=== PATIENT | female | born 1950 | race Caucasian/White ===

== ENCOUNTER 2017-10-10 11:58 | Emergency (ER) | payer OTHER ==
[~2017-10-10] VITALS: Ht 157.5 cm; Wt 66.4 kg
[~2017-10-10 11:58] MED LIST: CIPRO 250MG TA250 MG PO; FLAGYL500 MG PO; NAPROSYN500 MG PO; NORCO 325 MG-51 TAB PO; PROAIR HFA0.09 MG/AC IH; TYLENOL 325MG325 MG PO; ZESTRIL 10MG10 MG PO
[2017-10-10 12:03] VITALS: BP 140/73; PULSE 98; TEMP 98.8
[2017-10-10] MEDS ORDERED: JANUMET 1000 MG1 TA1 PO (12:17)
[2017-10-10] MEDS ORDERED: LISINOPRIL-HCTZ 20-1 (12:18)
[2017-10-10 12:35] LABS: COLLECTION METHOD CLEAN CATCH
[2017-10-10 12:38] LABS: BASO # 0.1 (0.0-0.2); BASO % 0.7 % (0.0-2.0); EOS # 0.2 (0.0-0.7); EOS % 2.1 % (0-4.0); GRAN # 4.3 (1.4-6.5); GRAN % 59.8 % (42.2-75.2); HEMATOCRIT 40.3 % (37.0-47.0); HEMOGLOBIN 14.8 g/dl (12.5-16.0); LYMPH # 2.1 (1.2-3.4); LYMPH % 29.5 % (20.0-51.0); MEAN CELL VOLUME 82 fl (80.0-100.0); MEAN CORPUSCULAR HEMOGLOBIN 30 pg (27.0-31.0); MEAN CORPUSCULAR HGB CONC 37 g/dl (33.0-37.0); MEAN PLATELET VOLUME 10.8 fl (7.4-10.4); MONO # 0.6 (0.1-0.6); MONO % 7.6 % (1.7-9.3); PLATELET COUNT 207 K/mm3 (130-400); RED BLOOD COUNT 4.89 M/mm3 (4.10-5.30); REDCELL DISTRIBUTION WIDTH-CV 12.1 % (11.5-14.5)
[2017-10-10 12:42] LABS: PH 5 (5-8); SQUAMOUS EPITHELIAL 0-2 /hpf; URINE APPEARANCE Clear; URINE BACTERIA None Seen /hpf; URINE BILIRUBIN Negative (NEGATIVE); URINE BLOOD Negative (NEGATIVE); URINE COLOR Yellow; URINE GLUCOSE 3+ (NEGATIVE); URINE KETONE Negative (NEGATIVE); URINE LEUKOCYTE ESTERASE Negative (NEGATIVE); URINE NITRATE Negative (NEGATIVE); URINE PROTEIN(semi-quant) 1+ (NEGATIVE); URINE RBC 0-2 /hpf; URINE UROBILINOGEN Negative (NEGATIVE)
[2017-10-10 12:58] LABS: ALBUMIN 4.4 gm/dL (3.5-5.0); BILIRUBIN,TOTAL 0.7 mg/dL (0.0-1.0); CALCIUM 10.1 mg/dL (8.4-10.2); CREATININE, serum 0.77 mg/dL (0.52-1.25); POTASSIUM 4.2 mmol/L (3.4-5.0); TOTAL PROTEIN 8.6 gm/dL (6.4-8.2)
== END 2017-10-10 13:49 | disposition home or self-care (01) ==
LOC: COL.ER 11:58
PROVIDERS: Family Medicine
DX: E11.65 Type 2 diabetes mellitus with hyperglycemia (principal); Z79.84 Long term (current) use of oral hypoglycemic drugs
CPT/HCPCS: J1815; J7030

== ENCOUNTER 2021-07-30 23:28 | Emergency (ER) | payer MEDICARE, OTHER ==
[~2021-07-30] VITALS: Ht 157.5 cm; Wt 60.9 kg
[~2021-07-30 23:28] MED LIST changes: +GLUCOPHAGE1000 MG PO; +JANUMET 1000 MG1 TA1 PO; +LANTUS SOLOS100 U/ML SQ; +LISINOPRIL-HCTZ 20-1; +NOVOLOG FLEX100 U/ML SQ; +PRINIVIL20 MG PO
[2021-07-30 23:39] VITALS: TEMP 97.7
[2021-07-30 23:50] LABS: BASO % 0.3 % (0.0-2.0); EOS # 0.1 K/mm3 (0.0-0.7); EOS % 1.4 % (0.0-4.0); GRAN % 58.4 % (42.2-75.2); HEMATOCRIT 39.4 % (37.0-47.0); HEMOGLOBIN 13.6 g/dl (12.5-16.0); LYMPH # 2.9 K/mm3 (1.2-3.4); LYMPH % 33.9 % (20.0-51.0); MEAN CELL VOLUME 86 fl (80.0-100.0); MEAN CORPUSCULAR HEMOGLOBIN 30 pg (27-31); MEAN CORPUSCULAR HGB CONC 35 g/dl (33.0-37.0); MONO # 0.5 K/mm3 (0.1-0.6); MONO % 5.8 % (1.7-9.3); PLATELET COUNT 252 K/mm3 (130-400); RED BLOOD COUNT 4.59 M/mm3 (4.10-5.30); REDCELL DISTRIBUTION WIDTH-CV 12.3 % (11.5-14.5)
[2021-07-31 00:05] LABS: ALANINE AMINOTRANSFERASE 16 U/L (0-55); ALBUMIN 4.2 gm/dL (3.4-4.8); ALKALINE PHOSPHATASE 51 U/L (40-150); ANION GAP 13 mmol/L (7-16); AST,SGOT 19 U/L (5-34); BILIRUBIN,TOTAL 0.3 mg/dL (0.2-1.2); BLOOD UREA NITROGEN 14 mg/dL (10-20); CALCIUM 9.6 mg/dL (8.4-10.2); CARBON DIOXIDE 21 mmol/L (23-31); CHLORIDE 103 mmol/L (98-107); CREATININE, serum 0.84 mg/dL (0.57-1.11); GLUCOSE 114 mg/dL (70-99); SODIUM 137 mmol/L (136-145); TOTAL PROTEIN 7.5 gm/dL (6.2-8.1)
[2021-07-31 00:35] LABS: TROPONIN-I < 0.010 ng/mL (0.00-0.033)
[2021-07-31 01:28] LABS: COLLECTION METHOD CLEAN CATCH
[2021-07-31 01:34] LABS: PH 6 (5-8); SQUAMOUS EPITHELIAL None Seen /hpf (0-10); URINE APPEARANCE Clear (CLEAR/HAZY); URINE BACTERIA None Seen /hpf (NONE SEEN); URINE BILIRUBIN Negative (NEGATIVE); URINE BLOOD Negative (NEGATIVE); URINE COLOR Straw (YELLOW); URINE GLUCOSE Negative (NEGATIVE); URINE KETONE Negative (NEGATIVE); URINE LEUKOCYTE ESTERASE Negative (NEGATIVE); URINE NITRATE Negative (NEGATIVE); URINE PROTEIN(semi-quant) Negative (NEGATIVE); URINE RBC 0-2 /hpf (0-2); URINE UROBILINOGEN Negative (NEGATIVE)
[2021-07-31 09:48] VITALS: BP 154/73; PULSE 81
== END 2021-07-31 09:48 | disposition home or self-care (01) ==
LOC: COL.ER 23:28
PROVIDERS: Nurse Practitioner
DX: S09.90XA Unspecified injury of head, initial encounter (principal); S00.81XA Abrasion of other part of head, initial encounter; E11.9 Type 2 diabetes mellitus without complications; Z79.4 Long term (current) use of insulin; Z79.84 Long term (current) use of oral hypoglycemic drugs; W19.XXXA Unspecified fall, initial encounter
CPT/HCPCS: J7030

== ENCOUNTER 2021-08-20 09:10 | Day surgery (SDC) | payer MEDICARE, OTHER ==
[~2021-08-20] VITALS: Ht 160 cm; Wt 59.8 kg
[2021-08-20] MEDS ORDERED: TRULICITY0.75 MG/0. SQ (10:17)
[2021-08-20] MEDS ORDERED: GLUCOPHAGE1000 MG PO (10:17)
[2021-08-20] MEDS ORDERED: INDERAL60 MG PO (10:18)
[2021-08-20] MEDS ORDERED: PRILOSEC 20MG20 MG PO (10:18)
[2021-08-20] MEDS ORDERED: SYNTHROID 0.0.025 MG PO (10:18)
[2021-08-20 10:23] VITALS: BP 144/78; PULSE 68; TEMP 97.3
[2021-08-20 11:55] VITALS: BP 134/70; PULSE 80; TEMP 98.5
[2021-08-20 12:00] VITALS: BP 137/69; PULSE 69
[2021-08-20 12:15] VITALS: BP 141/71; PULSE 68
[2021-08-20 12:30] VITALS: BP 131/69; PULSE 68
--- NOTE | 2021-08-20 12:47 | NUR ---
1155 Pt returns from endo procedure via cart and RN assist to [facility]. Pt ambulates from cart to recliner with RN assist. Monitors on and alarms set. Call light within reach. Report received from ENRIQUE Pitts. Pt alert and oriented. Pt requests water and muffin. Pt denies any pain or nausea. Pt's daughter present in room. 1210 Pt taking food and drink well. No complications noted. 1240 Discharge instructions given to pt and pt's daughter. All questions answered to their satisfaction. Handed to pt are a thank you card and discharge information. 1247 Pt transferred out of the hospital via wheelchair and D. assist, to private vehicle driven by pt's daughter.
== END 2021-08-20 12:47 | disposition home or self-care (01) ==
LOC: SDCO 09:10
DX: K25.7 Chronic gastric ulcer without hemorrhage or perforation (principal); I10 Essential (primary) hypertension; D64.9 Anemia, unspecified; J45.909 Unspecified asthma, uncomplicated; K21.9 Gastro-esophageal reflux disease without esophagitis; E78.1 Pure hyperglyceridemia; E03.9 Hypothyroidism, unspecified; E11.40 Type 2 diabetes mellitus with diabetic neuropathy, unspecified; F41.9 Anxiety disorder, unspecified; Z79.899 Other long term (current) drug therapy; Z79.4 Long term (current) use of insulin; Z90.710 Acquired absence of both cervix and uterus
CPT/HCPCS: J2704; J7030